=== PATIENT | male | born 1965 | race Hispanic/Latino ===

== ENCOUNTER 2021-04-28 18:25 | Inpatient (IN) | payer OTHER ==
--- NOTE | 2021-04-28 18:28 | Emergency Department Report ---
<KIN GILES - Last Filed: 04/28/21 23:19> ED Neuro Deficit HPI - General Chief Complaint: Neuro Symptoms/Deficit Stated Complaint: Patient minimally verbal. EMS is concerned about a stroke Time Seen by Provider: 04/28/21 18:26 - Related Data Home Medications: Previous Rx's Medication Instructions Recorded Last Taken Type Aspirin 325 mg PO QDAY #30 tablet 04/28/21 Unknown Rx Allergies/Adverse Reactions: Allergies Allergy/AdvReac Type Severity Reaction Status Date / Time atorvastatin [From Lipitor] Allergy Mild Unknown Verified 04/28/21 19:52 ED Past Medical Hx - Medications Home Medications: Home Medications Medication Instructions Recorded Confirmed Last Taken Type Aspirin 325 mg PO QDAY #30 tablet 04/28/21 Unknown Rx ED Course - Reevaluation(s) Reevaluation #2: 04/28/21 23:19 I received a call from Dr. Saunders, the doctor that is in charge for patient in assisted stating that patient does not have the decision to sign AGAINST MEDICAL ADVICE and he requested that the patient to be admitted to the hospital for further management. This is witnessed by venue manager and ER director and patient nurse. I discussed the patient with Dr. Godoy, he advised to put bridge order for the patient to be admitted to the hospital. - Lab Data Result diagrams: 04/28/21 18:53 04/28/21 18:53 ED Disposition Clinical Impression: Left-sided weakness, Aphasia, History of CHF (congestive heart failure), History of coronary artery disease Disposition: DC-[id number] OP ADMIT IP TO THIS HOSP Is pt being admited?: Yes Condition: Undetermined <MEE BLISS - Last Filed: 04/29/21 17:20> ED Neuro Deficit HPI - General Source: patient, police, EMS (Verbal report received from emergency medical services. EMS documentation not available at time of chart dictation ), RN notes reviewed Mode of arrival: Stretcher Limitations: Altered Mental Status, Physical Limitation - History of Present Illness Initial Comments: The patient was evaluated in the emergency department for symptoms described in the history of present illness. He/she was evaluated in the context of the global COVID-19 pandemic, which necessitated consideration that the patient might be at risk for infection with the virus that causes COVID-19. Institutional protocols and algorithms that pertain to the evaluation of patients at risk for COVID-19 are in a state of rapid change based on informat ion released by regulatory bodies including the CDC and federal and state organizations. These policies and algorithms were followed during the patient's care in the emergency department. Please note that these policies, procedures and recommendations changed on a rapid basis. Patient is a 55-year-old gentleman. He is not known to myself previously. He is currently incarcerated at a local assisted. He is brought to the hospital by emergency medical services as a possible code stroke. The patient himself is not verbal. [facility] facility documentation reviewed and appreciated, it is indicated that this patient is a 56-year-old gentleman with a history of CHF (unknown ejection fraction), AAA (unknown dimensions), found in cell with new left-sided weakness and slurred speech. It is documented that the patient had an Accu-Chek of 94, and a blood pressure of 85/64. It is unclear if the patient's symptoms developed this afternoon, or he was discovered with the symptoms. EMS tells me that the patient's symptoms started at 4:45 PM. Called up assisted facility at [phone]. Was transferred to the office of the medical insurance coding specialist, nobody answered the phone, and the left emergent voicemail for call back. The patient indicates that he has a significant other by the name of Edel; [phone]. I asked the patient if he take any anticoagulants, or blood thinning medications, but he cannot answer me. The patient pointed to the number, and indicated I should call this number. I called up the number, nobody answered, and I left voicemail for call back. As per EMS, neurologic symptoms include facial droop on the left side, and left arm weakness EMS reports normal Accu-Chek in the field. They state vital signs are "normal." In the emergency room, the patient is awake, follows commands, but is nonverbal. The patient cannot tell me his last known well time. In spite of multiple phone calls to multiple numbers, I am not able to conclusively established this patient's last known well time. Location: speech, left face, left arm, left leg Presenting Symptoms: Present: Weak/Paralyzed One Side, Unable to Speak Clearly Place: other (In the assisted) Severity: Unable to Determine On Anticoagulants: Yes (Patient takes aspirin. Patient does not take systemic a nticoagulation) Associated Symptoms: other (The patient is nonverbal.) ED Review of Systems ROS: Stated complaint: POSS STROKE Other details as noted in HPI Comment: Unobtainable due to pts medical conditions ED Neuro Physical Exam - General Limitations: Altered Mental Status, Physical Limitation General appearance: lethargic Suspected Stroke: Yes - Head Head exam: Present: atraumatic, normocephalic - Eye Eye exam: Present: normal appearance, PERRL - ENT ENT exam: Present: normal exam, normal orophraynx, mucous membranes moist, normal external ear exam - Neck Neck exam: Present: normal inspection, full ROM. Absent: tenderness, m eningismus - Respiratory Respiratory exam: Present: normal lung sounds bilaterally. Absent: respiratory distress, wheezes, rales, rhonchi, stridor, decreased breath sounds - Cardiovascular Cardiovascular Exam: Present: regular rate, normal rhythm, normal heart sounds. Absent: bradycardia, tachycardia, irregular rhythm, systolic murmur, diastolic murmur, rubs, gallop - GI/Abdominal GI/Abdominal exam: Present: soft. Absent: distended, tenderness, guarding, rebound, rigid, pulsatile mass - Rectal Rectal exam: Present: normal inspection, heme (-) stool, other (Chaperoned by Luan Perera). Absent: heme (+) stool, black stool, bloody stool - Extremities Exam Extremities exam: Present: normal inspection, other (2+ pulses noted in the bilateral upper and lower extremities. There is no palpable cord. negative Homans sign. Muscular compartments are soft. The pelvis is stable.) - Back Exam Back exam: Present: normal inspection. Absent: tenderness, CVA tenderness (R), CVA tenderness (L), paraspinal tenderness, vertebral tenderness - Neurological Exam Neurological exam: Present: altered, other (The patient is nonverbal. EOMI) - NIHSS Assessment Interval: Baseline 1a. Level of Consciousness: arousable/minor stimuli 1b. LOC Questions: answers no questions correctly 1c. LOC Commands: performs 1 task correctly 2. Best Gaze: normal 3. Visual: no visual loss (Unable to assess) 4. Facial Palsy: minor paralysis (Left side) 5b. Motor Arm Right: drift 5a. Motor Arm Left: some gravity effort 6a. Motor Leg Left: some gravity effort 6b. Motor Leg Right: drift 7. Limb Ataxia: amputation (Unable to assess) 8. Sensory: mild/moderate sensory loss 9. Best Language: mild/moderate aphasia 10. Dysarthria: mild/moderate dysarthria 11. Extinction/Inattention: visual/tactile inattention Total Score: 15 Stroke Severity: Moderate Stroke - Psychiatric Psychiatric exam: Present: normal affect, normal mood - Skin Skin exam: Present: warm, dry, intact, normal color. Absent: rash ED Course Vital Signs 04/28/21 04/28/21 04/28/21 19:02 19:16 19:30 Pulse Rate 59 L 52 L 67 Respiratory 16 21 14 Rate Blood Pressure 154/76 150/73 O2 Sat by Pulse 100 100 97 Oximetry 04/28/21 04/28/21 04/28/21 19:46 20:00 20:16 Pulse Rate 67 47 L 58 L Respiratory 12 23 14 Rate Blood Pressure 132/84 122/73 137/68 O2 Sat by Pulse 98 100 100 Oximetry 04/28/21 04/28/21 04/28/21 20:26 20:30 20:46 Pulse Rate 76 47 L Respiratory 15 20 Rate Blood Pressure 116/84 141/74 O2 Sat by Pulse 100 100 99 Oximetry 04/28/21 04/28/21 04/28/21 21:00 21:16 21:30 Pulse Rate 68 58 L 58 L Respiratory 13 12 23 Rate Blood Pressure 141/74 141/78 119/69 O2 Sat by Pulse 98 98 Oximetry 04/28/21 04/28/21 04/28/21 21:46 22:00 22:16 Pulse Rate 57 L 57 L 65 Respiratory 14 16 17 Rate Blood Pressure 129/61 121/67 135/75 O2 Sat by Pulse 95 95 95 Oximetry 04/28/21 04/28/21 04/28/21 22:30 22:45 23:00 Pulse Rate 58 L 82 63 Respiratory 15 24 22 Rate Blood Pressure 137/109 137/109 123/72 O2 Sat by Pulse 94 95 Oximetry 04/28/21 04/28/21 04/28/21 23:16 23:30 23:46 Pulse Rate 67 61 64 Respiratory 14 15 16 Rate Blood Pressure 114/86 119/69 121/69 O2 Sat by Pulse 98 91 Oximetry 04/29/21 04/29/21 04/29/21 00:00 00:16 00:30 Pulse Rate 59 L 58 L 58 L Respiratory 18 15 16 Rate Blood Pressure 112/58 108/69 O2 Sat by Pulse 95 93 90 Oximetry 04/29/21 04/29/21 04/29/21 00:46 01:00 01:16 Pulse Rate 56 L 59 L 56 L Respiratory 16 14 18 Rate Blood Pressure 118/58 112/60 124/73 O2 Sat by Pulse 96 95 Oximetry 04/29/21 04/29/21 04/29/21 01:30 01:46 02:00 Pulse Rate 63 60 61 Respiratory 13 15 19 Rate Blood Pressure 131/65 114/67 116/70 O2 Sat by Pulse 93 93 89 Oximetry 04/29/21 04/29/21 04/29/21 02:16 02:30 02:46 Pulse Rate 68 61 71 Respiratory 14 12 17 Rate Blood Pressure 109/71 114/67 105/76 O2 Sat by Pulse 92 Oximetry 04/29/21 04/29/21 04/29/21 03:00 03:16 03:30 Pulse Rate 62 63 66 Respiratory 15 17 14 Rate Blood Pressure 114/75 110/66 112/70 O2 Sat by Pulse 95 94 94 Oximetry 04/29/21 04/29/21 04/29/21 03:46 04:00 04:16 Pulse Rate 64 63 55 L Respiratory 12 14 13 Rate Blood Pressure 110/62 110/62 113/70 O2 Sat by Pulse 94 95 89 Oximetry 04/29/21 04/29/21 04/29/21 04:30 04:46 05:00 Pulse Rate 54 L 53 L 54 L Respiratory 14 16 14 Rate Blood Pressure 109/79 113/75 115/68 O2 Sat by Pulse 97 93 96 Oximetry 04/29/21 04/29/21 04/29/21 05:16 05:30 05:46 Pulse Rate 59 L 56 L 57 L Respiratory 13 13 14 Rate Blood Pressure 103/66 95/46 96/51 O2 Sat by Pulse 94 95 93 Oximetry 04/29/21 04/29/21 04/29/21 06:00 06:16 06:30 Pulse Rate 53 L 71 57 L Respiratory 13 11 L 17 Rate Blood Pressure 108/57 84/50 106/52 O2 Sat by Pulse 91 88 89 Oximetry 04/29/21 04/29/21 04/29/21 06:46 07:00 07:16 Pulse Rate 54 L 60 54 L Respiratory 13 16 10 L Rate Blood Pressure 84/55 88/50 111/48 O2 Sat by Pulse 93 90 92 Oximetry 04/29/21 04/29/21 04/29/21 07:30 07:46 08:00 Pulse Rate 51 L 49 L 61 Respiratory 11 L 11 L 11 L Rate Blood Pressure 97/40 95/41 90/51 O2 Sat by Pulse 92 91 93 Oximetry 04/29/21 04/29/21 08:16 08:30 Pulse Rate 69 66 Respiratory 13 17 Rate Blood Pressure 107/46 107/46 O2 Sat by Pulse 92 90 Oximetry - Reevaluation(s) Reevaluation #1: 04/28/21 19:04 Differential diagnosis, including but not limited to: Stroke, pneumonia, urinary tract infection, electrolyte derangement, thyroid derangement Assessment and plan: 55-year-old gentleman, who is nonverbal, with left-sided weakness, with an unclear last known well time. [facility] documentation indicates that he is found in cell with new left-sided weakness and slurred speech. Called up the assisted twice, was not able to get in touch with a medical professional or person who could clarify this patient's exact last known well time, and clarify if he was discovered at 4:45 PM, or if symptoms developed at 4:45 PM. In addition, his called me back, Ms. Hollingsworth ([phone]). She tells me the patient has been unresponsive in the assisted for 2 days. Therefore, this patient's last known well time as per his is over 48 hours ago. She also reports the patient had a myocardial infarction at [facility] within the past few weeks, and she reports he does not take systemic anticoagulation. She reports home medications include lisinopril, aspirin, Lasix, and metoprolol. This patient is therefore not a TPA candidate as we cannot clarify his exact last known well time, he has had a recent myocardial infarction as per his , and his also states that he has been unresponsive for over 48 hours. Because of alteration in mental status and impressive neurologic examination, the patient is emergently administratively consented for CT angiogram of the head and neck to evaluate for large vessel occlusion, vertebrobasilar disease, and/or dissection. Wet read from consulting stroke neurologist, Dr. Norton, is at no large vessel occlusion, dissection, or bleed is noted. We are awaiting formal interpretation from radiology at this time Blood pressure in the 150s at this time. Rectal exam negative for gross blood. Guaiac negative. Laboratory studies, urinalysis, x-ray pending. 04/28/21 19:05 04/28/21 20:34 Dr. Saunders from the assisted has called back. Last known well time 1:30 PM. Laboratory studies unremarkable. CTA head and neck negative for acute findings. Noncontrast CT scan of the brain negative for acute findings. Patient not tolerating p.o. Aspirin ordered rectally. 04/28/21 20:39 Patient's Edel is at the bedside. She has requested transfer to [facility] for continuity of care. We will reach out to [facility] house father; [phone] as a pat ruvalcaab. Discussed with Elisa, house father, states they cannot accept transfer as they are at full capacity and currently on diversion. I have updated the patient's . This patient can be managed over here at this hospital medically. He medically does not require transfer to a different facility. 04/28/21 21:19 Patient's family has now requested transfer to [facility]. We will discuss with [facility]. 04/28/21 21:51 Discussed history, physical, laboratory studies and imaging studies with neurology hospitalist at [facility], Dr. Hale [facility] is not able to accept this patient as they do not have available beds. In addition, this patient can be managed here medically as we have the necessary services to care for this patient. I have updated the patient's . 04/28/21 21:52 04/28/21 22:00 multiple extensive discussion was had with the patient's , Ms. Hollingsworth, as well as the patient. Neither the patient, nor his want to be admitted to this hospital. They are both refusing admission to this hospital. Risks of leaving, including , disability, paralysis, loss of quality of life are discussed with both the patient and his . While I do not think that the patient has decision-making capacity, his is alert, oriented, sober and of sound mind, and we have discussed this multiple times. I begged and implored her to allow us to admit him to the medical service for stroke work-up and treatment, but she refused. The patient's states that she will take him to [facility] to the emergency room, and plans to have his care continued there. It is unclear how she will take him to the emergency room while he is arrested and under police custody, however, given that his exhibits decision-making capacity and is adamantly refusing admission, in spite of multip le recommendations to do so, the patient will be discharged AGAINST MEDICAL ADVICE. 04/28/21 22:12 Have also informed delmar Brown at the [facility]assisted about what is currently going on. He states he will get in touch with his lead medical technologist Dr. Saunders to formulate an appropriate plan of care. Reevaluation #2: 04/29/21 17:17 Per Sabine Taylor in risk management, patients does not have authority to sign this patient out ama, and that it is the assisted who is serving as the patients medical decision maker thus patient admitted per [facility] instructions, which is also aligned with this patients best medical interests - Lab Data Result diagrams: 04/28/21 18:53 04/28/21 18:53 Lab Results 04/28/21 04/28/21 04/28/21 Range/Units 18:53 18:53 18:53 WBC 12.6 H (4.5-11.0) K/mm3 RBC 5.20 H (3.65-5.03) M/mm3 Hgb 15.6 H (11.8-15.2) gm/dl Hct 46.6 H (35.5-45.6) % MCV 90 (84-94) fl MCH 30 (28-32) pg MCHC 34 (32-34) % RDW 14.8 (13.2-15.2) % Plt Count 243 (140-440) K/mm3 Lymph % (Auto) 12.0 L (13.4-35.0) % Callahan % (Auto) 7.4 H (0.0-7.3) % Eos % (Auto) 1.0 (0.0-4.3) % Baso % (Auto) 0.6 (0.0-1.8) % Lymph # (Auto) 1.5 (1.2-5.4) K/mm3 Callahan # (Auto) 0.9 H (0.0-0.8) K/mm3 Eos # (Auto) 0.1 (0.0-0.4) K/mm3 Baso # (Auto) 0.1 (0.0-0.1) K/mm3 Seg Neutrophils % 79.0 H (40.0-70.0) % Seg Neutrophils # 10.0 H (1.8-7.7) K/mm3 PT 13.4 (12.2-14.9) Sec. INR 0.97 (0.87-1.13) APTT 31.8 (24.2-36.6) Sec. Thrombin Time 18.0 (15.1-19.6) Sec. Sodium 137 (137-145) mmol/L Potassium 3.9 (3.6-5.0) mmol/L Chloride 100.2 (98-107) mmol/L Carbon Dioxide 28 (22-30) mmol/L Anion Gap 13 mmol/L BUN 17 (9-20) mg/dL Creatinine 1.2 (0.8-1.3) mg/dL Estimated GFR > 60 ml/min BUN/Creatinine Ratio 14 % Glucose 106 H (75-100) mg/dL Lactic Acid (0.7-2.0) mmol/L Calcium 8.9 (8.4-10.2) mg/dL Magnesium 2.10 (1.7-2.3) mg/dL Total Bilirubin 0.50 (0.1-1.2) mg/dL AST 20 (5-40) units/L ALT 25 (7-56) units/L Alkaline Phosphatase 65 (35-129) units/L Total Creatine Kinase 69 (55-170) units/L CK-MB (CK-2) 1.6 (0.0-4.0) ng/mL CK-MB (CK-2) Rel Index 2.3 (0-4) Troponin T < 0.010 (0.00-0.029) ng/mL Total Protein 6.7 (6.3-8.2) g/dL Albumin 4.1 (3.9-5) g/dL Albumin/Globulin Ratio 1.6 % TSH (0.270-4.200) mlU/mL 04/28/21 04/28/21 04/28/21 Range/Units 19:12 19:12 19:12 WBC (4.5-11.0) K/mm3 RBC (3.65-5.03) M/mm3 Hgb (11.8-15.2) gm/dl Hct (35.5-45.6) % MCV (84-94) fl MCH (28-32) pg MCHC (32-34) % RDW (13.2-15.2) % Plt Count (140-440) K/mm3 Lymph % (Auto) (13.4-35.0) % Callahan % (Auto) (0.0-7.3) % Eos % (Auto) (0.0-4.3) % Baso % (Auto) (0.0-1.8) % Lymph # (Auto) (1.2-5.4) K/mm3 Callahan # (Auto) (0.0-0.8) K/mm3 Eos # (Auto) (0.0-0.4) K/mm3 Baso # (Auto) (0.0-0.1) K/mm3 Seg Neutrophils % (40.0-70.0) % Seg Neutrophils # (1.8-7.7) K/mm3 PT (12.2-14.9) Sec. INR (0.87-1.13) APTT (24.2-36.6) Sec. Thrombin Time (15.1-19.6) Sec. Sodium (137-145) mmol/L Potassium (3.6-5.0) mmol/L Chloride (98-107) mmol/L Carbon Dioxide (22-30) mmol/L Anion Gap mmol/L BUN (9-20) mg/dL Creatinine (0.8-1.3) mg/dL Estimated GFR ml/min BUN/Creatinine Ratio % Glucose (75-100) mg/dL Lactic Acid 1.10 (0.7-2.0) mmol/L Calcium (8.4-10.2) mg/dL Magnesium (1.7-2.3) mg/dL Total Bilirubin (0.1-1.2) mg/dL AST (5-40) units/L ALT (7-56) units/L Alkaline Phosphatase (35-129) units/L Total Creatine Kinase 69 (55-170) units/L CK-MB (CK-2) (0.0-4.0) ng/mL CK-MB (CK-2) Rel Index (0-4) Troponin T (0.00-0.029) ng/mL Total Protein (6.3-8.2) g/dL Albumin (3.9-5) g/dL Albumin/Globulin Ratio % TSH 0.766 (0.270-4.200) mlU/mL 04/29/21 Range/Units 02:43 WBC (4.5-11.0) K/mm3 RBC (3.65-5.03) M/mm3 Hgb (11.8-15.2) gm/dl Hct (35.5-45.6) % MCV (84-94) fl MCH (28-32) pg MCHC (32-34) % RDW (13.2-15.2) % Plt Count (140-440) K/mm3 Lymph % (Auto) (13.4-35.0) % Callahan % (Auto) (0.0-7.3) % Eos % (Auto) (0.0-4.3) % Baso % (Auto) (0.0-1.8) % Lymph # (Auto) (1.2-5.4) K/mm3 Callahan # (Auto) (0.0-0.8) K/mm3 Eos # (Auto) (0.0-0.4) K/mm3 Baso # (Auto) (0.0-0.1) K/mm3 Seg Neutrophils % (40.0-70.0) % Seg Neutrophils # (1.8-7.7) K/mm3 PT (12.2-14.9) Sec. INR (0.87-1.13) APTT (24.2-36.6) Sec. Thrombin Time (15.1-19.6) Sec. Sodium (137-145) mmol/L Potassium (3.6-5.0) mmol/L Chloride (98-107) mmol/L Carbon Dioxide (22-30) mmol/L Anion Gap mmol/L BUN (9-20) mg/dL Creatinine (0.8-1.3) mg/dL Estimated GFR ml/min BUN/Creatinine Ratio % Glucose (75-100) mg/dL Lactic Acid (0.7-2.0) mmol/L Calcium (8.4-10.2) mg/dL Magnesium (1.7-2.3) mg/dL Total Bilirubin (0.1-1.2) mg/dL AST (5-40) units/L ALT (7-56) units/L Alkaline Phosphatase (35-129) units/L Total Creatine Kinase (55-170) units/L CK-MB (CK-2) (0.0-4.0) ng/mL CK-MB (CK-2) Rel Index (0-4) Troponin T < 0.010 (0.00-0.029) ng/mL Total Protein (6.3-8.2) g/dL Albumin (3.9-5) g/dL Albumin/Globulin Ratio % TSH (0.270-4.200) mlU/mL Vital Signs 04/28/21 04/28/21 04/28/21 19:02 19:16 19:30 Pulse Rate 59 L 52 L 67 Respiratory 16 21 14 Rate Blood Pressure 154/76 150/73 O2 Sat by Pulse 100 100 97 Oximetry 04/28/21 04/28/21 04/28/21 19:46 20:00 20:16 Pulse Rate 67 47 L 58 L Respiratory 12 23 14 Rate Blood Pressure 132/84 122/73 137/68 O2 Sat by Pulse 98 100 100 Oximetry Rectal temperature 98 degrees. - EKG Data -: EKG Interpreted by Ct EKG shows normal: sinus rhythm Rate: normal When compared to previous EKG there are: previous EKG unavailable 04/28/21 19:49 EKG interpreted at 19: 10 Sinus rhythm, bradycardia, rate 61 bpm, normal axis, normal P wave axis, poor R wave progression, PVC, incomplete left bundle branch block. Abnormal EKG. Not a STEMI. No prior for comparison. - Radiology Data Radiology results: pending, report reviewed, image reviewed CTA head with intravenous contrast CLINICAL HISTORY: stroke sx TECHNIQUE: 0.625 mm thick contiguous axial scans were obtained from the skull base to the skull vertex during rapid bolus administration of intravenous contrast material. Multiplanar reconstructions were produced in the coronal and sagittal planes. In addition 3 plane MIP instructions were produced and reviewed for this report. The axial source images and reconstructed images were reviewed for this report. CONTRAST DOSE REPORT: Omnipaque 350: 100 ml administered intravenously. All CT scans at this location are performed using CT dose reduction for ALARA by means of automated exposure control. FINDINGS: Internal carotid arteries: Calcified atherosclerotic plaque is seen along the course of the cavernous segments of both internal carotid arteries extending up into the clinoid regions bilaterally. There is no associated stenosis. Irena, cavernous, opthalmic, clinoid and supraclinoid segments of the ICAs have an otherwise unremarkable appearance. Middle cerebral arteries:Normal and symmetrical M1 segments of the middle cerebral arteries are demonstrated. No abnormalities are seen on evaluation of the insular or opercular branches. Anterior cerebral arteries:Bilaterally symmetrical A1 segments are demonstrated. No abnormalities are seen along the course of the A2 segments or their visualized pericallosal branches. Vertebral arteries:Bilaterally symmetrical vertebral arteries are demonstrated. Both vertebral arteries contribute to the basilar artery origin. Basilar artery:Basilar artery has an unremarkable appearance. Posterior cerebral arteries:Bilaterally symmetrical posterior cerebral arteries are identi fied. Dural sinuses: Dural venous sinuses are well demonstrated on this exam. There is no evidence of dural sinus thrombosis. IMPRESSION: 1. No indication of intercranial stenosis or large vessel occlusion. Signer Name: Vipin Monsalve MD Signed: 04/28/2021 6:17 PM Workstation Name: [id number] CTA neck without and with intravenous contrast material CLINICAL HISTORY: stroke sx TECHNIQUE: Following acquisition of a timing bolus 0.625 mm thick contiguous axial scans were obtained from aortic arch to the skull base during rapid bolus intravenous contrast infusion. In addition to evaluation of axial source images multiplanar reconstructions were produced and reviewed for this report. 3 plane MIP reconstructions were produced and reviewed. Contrast dose report: Omnipaque 350: 100 ml, administered intravenously All CT examinations performed at this facility utilize modulated dose reduction, iterative reconstruction or weight-based dosing, as appropriate, to obtain a radiation dose which is as low as can reasonably be achieved. FINDINGS: Thoracic aorta:No abnormalities are identified along the course of the thoracic aorta..The origins of the great vessels have an unremarkable appearance. Brachiocephalic artery, left common carotid artery origin and left subclavian artery all have an unremarkable appearance. Right carotid artery:No abnormalities are seen along the course of the RCCA, at the right carotid bifurcation or along the cervical portions of the DAVID. Left carotid artery: Mildly calcified atherosclerotic plaque is observed at the left carotid bifurcation or along the proximal LICA with no indication of stenosis. No significant abnormalities are noted along the course of the left common carotid artery, at the left carotid bifurcation or along the course of the cervical segments of the LICA. Posterior circulation:The vertebral arteries have an unremarkable appearance. Both vertebral arteries contribute to the basilar artery origin. The basilar artery has an unremarkable appearance. The degree of stenosis, if any, is determined utilizing NASCET like criteria. In this case there is no indication of hemodynamically significant stenosis at the carotid bifurcations or elsewhere. Evaluation of the nonvascular soft tissue structures reveal no abnormality. There is no indication of cervical lymphadenopathy. No abnormalities are seen along the course of the airway. Visualized portions of the parotid glands and the submandibular salivary glands have a normal appearance. Thyroid gland has a normal appearance. Evaluation of the lung apices reveals no evidence of lung nodule or infiltrate. Evaluation of the cervical spine revealed no significant abnormalities. IMPRESSION: 1. No indication of hemodynamically significant stenosis at the carotid bifurcations or elsewhere. Signer Name: Vipin Monsalve MD Signed: 04/28/2021 6:14 PM Workstation Name: [id number] CT HEAD WITHOUT CONTRAST INDICATION / CLINICAL INFORMATION: Stroke symptoms. TECHNIQUE: All CT scans at this location are performed using CT dose reduction for ALARA by means of automated exposure control. COMPARISON: None available. FINDINGS: HEMORRHAGE: No evidence of intracranial hemorrhage or extra-axial fluid collection. EXTRA-AXIAL SPACES: Cortical sulci, sylvian fissures and basilar cisterns have an unremarkable appearance. VENTRICULAR SYSTEM: The third and lateral ventricles are of normal size and configuration. CEREBRAL PARENCHYMA: Periventricular, deep white matter and subcortical white matter lucency is observed in both cerebral hemispheres. This likely reflects the presence of microvascular ischemic change which is greater than expected for the patient's age of 55 years. MIDLINE SHIFT OR HERNIATION: There is no mass effect. CEREBELLUM / BRAINSTEM: Brainstem and cerebellum have an unremarkable appearance. MIDLINE STRUCTURES:No abnormalities of the pituitary gland or pineal region are identified. INTRACRANIAL VESSELS: Calcified atherosclerotic plaque is seen along the course the cavernous segments of both internal carotid arteries extending up into the supraclinoid regions bilaterally. ORBITS: visualized portions of the orbits have an unremarkable appearance. SOFT TISSUES of HEAD: No significant abnormality. CALVARIUM: Evaluation of bone windows reveals no abnormalities. PARANASAL SINUSES / MASTOID AIR CELLS: Mild mucosal disease is present in the right frontal sinus and within several anterior ethmoid air cells on the right. ADDITIONAL FINDINGS: None. IMPRESSION: 1. No acute intracranial abnormality. 2. Evidence of intercranial atherosclerotic disease manifest by extensive calcification of the internal carotid arteries. 3. Moderate microv ascular ischemic change greater than expected at age 55 years. Signer Name: Vipin Monsalve MD Signed: 04/28/2021 6:11 PM Workstation Name: [id number] CHEST 1 VIEW INDICATION: cva. COMPARISON: 01/20/2021 FINDINGS: Support devices: None. Heart: Enlarged, unchanged. Post-CABG changes are noted. Lungs /Pleura: No acute pulmonary or pleural findings. IMPRESSION: 1. No acute findings. Signer Name: Abran Loredo MD Signed: 04/28/2021 6:09 PM Workstation Name: [id number] Critical Care Time: Yes Critical care time in (mins) excluding proc time.: 120 Critical care attestation.: If time is entered above; I have spent that time in minutes in the direct care of this critically ill patient, excluding procedure time. Critical Care Time: Critical care time includes multiple bedside reevaluations, interpretation of laboratory studies, radiology studies, time spent having multiple conversations with patient's on the phone, and time spent calling the assisted (left voicemail for call back), and consultation with stroke neurology, caring for this patient with a neurologic deficit. This does not include procedure time. ED Disposition Is pt being admited?: Yes Does the pt Need Aspirin: Yes
--- NOTE | 2021-04-28 19:00 | Consultation ---
History of Present Illness History of present illness: [facility] Consult Note # Demographics Consult Type: Acute Stroke Level 1 (0-4.5 hrs) Patient Location: Emergency Room First Name: Geoffrey Last Name: Jon Date of : 1965 Age: 55 Gender: Male Time of Initial Page (): 04/28/2021, 18:30 Time of Return Call ( Time): 04/28/2021, 18:30 # HPI Chief Complaint: altered mental state left-sided weakness History: 55M with unclear medical history presents with left-sided facial droop and weakness, aphasia. Found in [facility] at 1645; unclear LKWT. Per , has been unresponsive in the [facility] for 2 days. # Scores Time of exam and NIHSS (): 04/28/2021, 18:43 Level of Consciousness 1a: [0] = Alert; keenly responsive LOC Questions 1b: [1] = Answers one correctly LOC Commands 1c: [0] = Performs both tasks correctly Best Gaze 2: [0] = Normal Visual 3: [2] = Complete hemianopia Facial Palsy 4: [2] = Partial paralysis Motor Arm Left 5a: [3] = No effort against gravity Motor Arm Right 5b: [0] = No drift Motor Leg Left 6a: [4] = No movement Motor Leg Right 6b: [0] = No drift Limb Ataxia 7: [0] = Absent Sensory 8: [2] = Severe to total sensory loss Best Language 9: [3] = Mute Dysarthria 10: [2] = Severe dysarthria Extinction and Inattention 11: [1] = Visual, tactile, auditory, spatial, or pers onal inattention NIHSS Total: 20 # Data Time Head CT personally read by me (): 04/28/2021, 18:[address]: no bleed preliminarily reviewed by me, please refer to radiology read for official reading CTA Head: no large vessel occlusion preliminarily reviewed by me, please refer to radiology read for official reading CTA Neck: patent vessels preliminarily reviewed by me, please refer to radiology read for official reading # Assessment Impression: Ischemic Stroke (Acute) # Plan Thrombolytic/Intervention: NOT IV Thrombolysis or IA Intervention candidate Thrombolytic Exclusion (< 3 hour window): time of onset unclear Intraarterial Exclusion: no large vessel occlusion (LVO) Target Blood Pressure: SBP < 220 DBP < 105 Labs: hemoglobin A1c lipid panel Imaging: (urgency: routine): MRI Brain without contrast Diagnostic Test: echo with bubble study Therapy/Evaluation: NPO until swallow evaluation PT/OT evaluation speech/swallow consultation Medication: ASA 300 NE until oral access available, then 81 daily Atorvastatin 80 daily, tailor to LDL < 70 goal DVT Prophylaxis: SCD chemical DVT prophylaxis Other: permissive hypertension telemetry monitoring I have discussed my recommendations with the referring provider Disposition: admit # Logistics Telemedicine: Interactive 2 way audio and visual telecommunication technology was utilized during this visit Electronically signed at 04/28/2021 19:00 (Eastern Time) by Meño Norton MD
[2021-04-28 19:09] LABS: Basophils # (Auto) 0.1 K/mm3 (0.0-0.1); Basophils % (Auto) 0.6 % (0.0-1.8); Eosinophils # (Auto) 0.1 K/mm3 (0.0-0.4); Hematocrit 46.6 % (35.5-45.6); Hemoglobin 15.6 gm/dl (11.8-15.2); Lymphocytes # (Auto) 1.5 K/mm3 (1.2-5.4); Mean Corpuscular HGB Conc 34 % (32-34); Mean Corpuscular Volume 90 fl (84-94); Monocytes # (Auto) 0.9 K/mm3 (0.0-0.8); Monocytes % (Auto) 7.4 % (0.0-7.3); Platelet Count 243 K/mm3 (140-440); Red Cell Distribution Width 14.8 % (13.2-15.2)
--- NOTE | 2021-04-28 19:14 | XRay Report ---
CHEST 1 VIEW INDICATION: cva. COMPARISON: 01/20/2021 FINDINGS: Support devices: None. Heart: Enlarged, unchanged. Post-CABG changes are noted. Lungs/Pleura: No acute pulmonary or pleural findings. IMPRESSION: 1. No acute findings. Signer Name: Abran Loredo MD Signed: 04/28/2021 7:09 PM Workstation Name: [id number]
--- NOTE | 2021-04-28 19:15 | Cat Scan Report ---
CT HEAD WITHOUT CONTRAST INDICATION / CLINICAL INFORMATION: Stroke symptoms. TECHNIQUE: All CT scans at this location are performed using CT dose reduction for ALARA by means of automated e xposure control. COMPARISON: None available. FINDINGS: HEMORRHAGE: No evidence of intracranial hemorrhage or extra-axial fluid collection. EXTRA-AXIAL SPACES: Cortical sulci, sylvian fissures and basilar cisterns have an unremarkable appear ance. VENTRICULAR SYSTEM: The third and lateral ventricles are of normal size and configuration. CEREBRAL PARENCHYMA: Periventricular, deep white matter and subcortical white matter lucency is obser juvenal in both cerebral hemispheres. This likely reflects the presence of microvascular ischemic change which is greater than expected for the patient's age of 55 years. MIDLINE SHIFT OR HERNIATION: There is no mass effect. CEREBELLUM / BRAINSTEM: Brainstem and cerebellum have an unremarkable appearance. MIDLINE STRUCTURES:No abnormalities of the pituitary gland or pineal region are identified. INTRACRANIAL VESSELS: Calcified atherosclerotic plaque is seen along the course the cavernous segment s of both internal carotid arteries extending up into the supraclinoid regions bilaterally. ORBITS: visualized portions of the orbits have an unremarkable appearance. SOFT TISSUES of HEAD: No significant abnormality. CALVARIUM: Evaluation of bone windows reveals no abnormalities. PARANASAL SINUSES / MASTOID AIR CELLS: Mild mucosal disease is present in the right frontal sinus and within several anterior ethmoid air cells on the right. ADDITIONAL FINDINGS: None. IMPRESSION: 1. No acute intracranial abnormality. 2. Evidence of intercranial atherosclerotic disease manifest by extensive calcification of the fall internship al carotid arteries. 3. Moderate microvascular ischemic change greater than expected at age 55 years. Signer Name: Vipin Monsalve MD Signed: 04/28/2021 7:11 PM Workstation Name: [id number]
--- NOTE | 2021-04-28 19:18 | Cat Scan Report ---
CTA neck without and with intravenous contrast material CLINICAL HISTORY: stroke sx TECHNIQUE: Following acquisition of a timing bolus 0.625 mm thick contiguous axial scans were obtained from aort ic arch to the skull base during rapid bolus intravenous contrast infusion. In addition to evaluation of axial source images multiplanar reconstructions were produced and reviewed for this report. 3 richi ne MIP reconstructions were produced and reviewed. Contrast dose report: Omnipaque 350: 100 ml, administered intravenously All CT examinations performed at this facility utilize modulated dose reduction, iterative reconstruc tion or weight-based dosing, as appropriate, to obtain a radiation dose which is as low as can reason ably be achieved. FINDINGS: Thoracic aorta:No abnormalities are identified along the course of the thoracic aorta..The origins of the great vessels have an unremarkable appearance. Brachiocephalic artery, left common carotid arter y origin and left subclavian artery all have an unremarkable appearance. Right carotid artery:No abnormalities are seen along the course of the RCCA, at the right carotid bif urcation or along the cervical portions of the DAVID. Left carotid artery: Mildly calcified atherosclerotic plaque is observed at the left carotid bifurcat ion or along the proximal LICA with no indication of stenosis. No significant abnormalities are noted along the course of the left common carotid artery, at the left carotid bifurcation or along the cou rse of the cervical segments of the LICA. Posterior circulation:The vertebral arteries have an unremarkable appearance. Both vertebral arteries contribute to the basilar artery origin. The basilar artery has an unremarkable appearance. The degree of stenosis, if any, is determined utilizing NASCET like criteria. In this case there is no indication of hemodynamically significant stenosis at the carotid bifurcations or elsewhere. Evaluation of the nonvascular soft tissue structures reveal no abnormality. There is no indication of cervical lymphadenopathy. No abnormalities are seen along the course of the airway. Visualized porti ons of the parotid glands and the submandibular salivary glands have a normal appearance. Thyroid gla nd has a normal appearance. Evaluation of the lung apices reveals no evidence of lung nodule or infil trate. Evaluation of the cervical spine revealed no significant abnormalities. IMPRESSION: 1. No indication of hemodynamically significant stenosis at the carotid bifurcations or elsewhere. Signer Name: Vipin Monsalve MD Signed: 04/28/2021 7:14 PM Workstation Name: [id number]
--- NOTE | 2021-04-28 19:21 | Cat Scan Report ---
CTA head with intravenous contrast CLINICAL HISTORY: stroke sx TECHNIQUE: 0.625 mm thick contiguous axial scans were obtained from the skull base to the skull vertex during r apid bolus administration of intravenous contrast material. Multiplanar reconstructions were produced in the coronal and sagittal planes. In addition 3 plane MIP instructions were produced and reviewed for this report. The axial source images and reconstructed images were reviewed for this report. CONTRAST DOSE REPORT: Omnipaque 350: 100 ml administered intravenously. All CT scans at this location are performed using CT dose reduction for ALARA by means of automated e xposure control. FINDINGS: Internal carotid arteries: Calcified atherosclerotic plaque is seen along the course of the cavernous segments of both internal carotid arteries extending up into the clinoid regions bilaterally. There is no associated stenosis. Irena, cavernous, opthalmic, clinoid and supraclinoid segments of the ICA s have an otherwise unremarkable appearance. Middle cerebral arteries:Normal and symmetrical M1 segments of the middle cerebral arteries are demon strated. No abnormalities are seen on evaluation of the insular or opercular branches. Anterior cerebral arteries:Bilaterally symmetrical A1 segments are demonstrated. No abnormalities are seen along the course of the A2 segments or their visualized pericallosal branches. Vertebral arteries:Bilaterally symmetrical vertebral arteries are demonstrated. Both vertebral arteri es contribute to the basilar artery origin. Basilar artery:Basilar artery has an unremarkable appearance. Posterior cerebral arteries:Bilaterally symmetrical posterior cerebral arteries are identified. Dural sinuses: Dural venous sinuses are well demonstrated on this exam. There is no evidence of dural sinus thrombosis. IMPRESSION: 1. No indication of intercranial stenosis or large vessel occlusion. Signer Name: Vipin Monsalve MD Signed: 04/28/2021 7:17 PM Workstation Name: [id number]
[2021-04-28 19:25] LABS: INR 0.97 (0.87-1.13)
[2021-04-28 19:26] LABS: Partial Thromboplastin Time 31.8 Sec. (24.2-36.6)
[2021-04-28 19:27] LABS: Creatine Kinase MB 1.6 ng/mL (0.0-4.0)
[2021-04-28 19:28] LABS: Alanine Aminotransferase 25 units/L (7-56); Albumin 4.1 g/dL (3.9-5); BUN/Creatinine Ratio 14; Blood Urea Nitrogen 17 mg/dL (9-20); Calcium 8.9 mg/dL (8.4-10.2); Hemolysis Index 4
[2021-04-28] MEDS ORDERED: ASPIRIN 81 MG TAB CHEW PO ONE (19:52)
[2021-04-28] MEDS ORDERED: ASPIRIN 300 MG RECT SUPP PR ONE (20:02)
[2021-04-28] MEDS: SODIUM CHLORIDE 0.9% 250ML 250 ML IV ONE ×2 (20:03→22:58)
[2021-04-29] MEDS ORDERED: oxyCODONE /ACETAMINOPHEN 5-325MG TAB PO PRN (02:23)
[2021-04-29] MEDS ORDERED: HYDROmorphone 1 MG/1 ML INJ IV PRN (02:23)
[2021-04-29] MEDS ORDERED: ALBUTEROL 2.5 MG/3 ML NEBU IH PRN (02:23)
[2021-04-29] MEDS ORDERED: ACETAMINOPHEN 325 MG TAB PO PRN (02:23)
[2021-04-29] MEDS ORDERED: ONDANSETRON 4 MG/2 ML INJ IV PRN (02:23)
--- NOTE | 2021-04-29 02:35 | History and Physical Report ---
History of Present Illness Date of examination: 04/29/21 Date of admission: 04/29/21 Chief complaint: Left-sided weakness and slurred speech History of present illness: 56-year-old gentleman with a history of CHF , AAA was brought from the half-way with new left-sided weakness and slurred speech. the patient had an Accu-Chek of 94, and a blood pressure of 85/64. As per EMS, neurologic symptoms include facial droop on the left side, and left arm weakness In the emergency room, the patient is awake, follows commands, but is nonverbal. The patient cannot tell me his last known well time. It is not able to conclusively established this patient's last known well time. CT scan of the head shows no acute intracranial abnormality. Patient is seen and evaluated by telemetry neurology Past History Past Medical History: heart failure, other (AAA) Medications and Allergies Allergies Allergy/AdvReac Type Severity Reaction Status Date / Time atorvastatin [From Lipitor] Allergy Mild Unknown Verified 04/28/21 19:52 Home Medications Medication Instructions Recorded Confirmed Last Taken Type Aspirin 325 mg PO QDAY #30 tablet 04/28/21 Unknown Rx Review of Systems Neurological: weakness, aphasia Exam - Constitutional Vitals: Temp Pulse Resp BP Pulse Ox 60 15 114/67 93 04/29/21 01:46 04/29/21 01:46 04/29/21 01:46 04/29/21 01:46 General appearance: Present: no acute distress, well-nourished - EENT Eyes: Present: PERRL ENT: hearing intact, clear oral mucosa - Neck Neck: Present: supple, normal ROM - Respiratory Respiratory effort: normal Respiratory: bilateral: CTA - Cardiovascular Heart Sounds: Present: S1 & S2. Absent: rub, click - Extremities Extremities: pulses symmetrical, No edema Peripheral Pulses: within normal limits - Abdominal General gastrointestinal: Present: soft, non-tender, non-distended, normal bowel sounds Male genitourinary: Present: normal - Integumentary Integumentary: Present: clear, warm, dry - Musculoskeletal Musculoskeletal: gait normal, strength equal bilaterally - Psychiatric Psychiatric: appropriate mood/affect, intact judgment & insight - Neurologic Neurologic: CNII-XII intact, other (Slurred speech. Left-sided weakness) HEART Score - HEART Score Troponin: Troponin T < 0.010 ng/mL (0.00-0.029) 04/28/21 18:53 Results - Labs CBC & Chem 7: 04/28/21 18:53 04/28/21 18:53 Labs: Laboratory Last Values WBC 12.6 K/mm3 (4.5-11.0) H 04/28/21 18:53 RBC 5.20 M/mm3 (3.65-5.03) H 04/28/21 18:53 Hgb 15.6 gm/dl (11.8-15.2) H 04/28/21 18:53 Hct 46.6 % (35.5-45.6) H 04/28/21 18:53 MCV 90 fl (84-94) 04/28/21 18:53 MCH 30 pg (28-32) 04/28/21 18:53 MCHC 34 % (32-34) 04/28/21 18:53 RDW 14.8 % (13.2-15.2) 04/28/21 18:53 Plt Count 243 K/mm3 (140-440) 04/28/21 18:53 Lymph % (Auto) 12.0 % (13.4-35.0) L 04/28/21 18:53 Wetzel % (Auto) 7.4 % (0.0-7.3) H 04/28/21 18:53 Eos % (Auto) 1.0 % (0.0-4.3) 04/28/21 18:53 Baso % (Auto) 0.6 % (0.0-1.8) 04/28/21 18:53 Lymph # (Auto) 1.5 K/mm3 (1.2-5.4) 04/28/21 18:53 Wetzel # (Auto) 0.9 K/mm3 (0.0-0.8) H 04/28/21 18:53 Eos # (Auto) 0.1 K/mm3 (0.0-0.4) 04/28/21 18:53 Baso # (Auto) 0.1 K/mm3 (0.0-0.1) 04/28/21 18:53 Seg Neutrophils % 79.0 % (40.0-70.0) H 04/28/21 18:53 Seg Neutrophils # 10.0 K/mm3 (1.8-7.7) H 04/28/21 18:53 PT 13.4 Sec. (12.2-14.9) 04/28/21 18:53 INR 0.97 (0.87-1.13) 04/28/21 18:53 APTT 31.8 Sec. (24.2-36.6) 04/28/21 18:53 Thrombin Time 18.0 Sec. (15.1-19.6) 04/28/21 18:53 Sodium 137 mmol/L (137-145) 04/28/21 18:53 Potassium 3.9 mmol/L (3.6-5.0) 04/28/21 18:53 Chloride 100.2 mmol/L (98-107) 04/28/21 18:53 Carbon Dioxide 28 mmol/L (22-30) 04/28/21 18:53 Anion Gap 13 mmol/L 04/28/21 18:53 BUN 17 mg/dL (9-20) 04/28/21 18:53 Creatinine 1.2 mg/dL (0.8-1.3) 04/28/21 18:53 Estimated GFR > 60 ml/min 04/28/21 18:53 BUN/Creatinine Ratio 14 % 04/28/21 18:53 Glucose 106 mg/dL (75-100) H 04/28/21 18:53 Lactic Acid 1.10 mmol/L (0.7-2.0) 04/28/21 19:12 Calcium 8.9 mg/dL (8.4-10.2) 04/28/21 18:53 Magnesium 2.10 mg/dL (1.7-2.3) 04/28/21 18:53 Total Bilirubin 0.50 mg/dL (0.1-1.2) 04/28/21 18:53 AST 20 units/L (5-40) 04/28/21 18:53 ALT 25 units/L (7-56) 04/28/21 18:53 Alkaline Phosphatase 65 units/L (35-129) 04/28/21 18:53 Total Creatine Kinase 69 units/L (55-170) 04/28/21 19:12 CK-MB (CK-2) 1.6 ng/mL (0.0-4.0) 04/28/21 18:53 CK-MB (CK-2) Rel Index 2.3 (0-4) 04/28/21 18:53 Troponin T < 0.010 ng/mL (0.00-0.029) 04/28/21 18:53 Total Protein 6.7 g/dL (6.3-8.2) 04/28/21 18:53 Albumin 4.1 g/dL (3.9-5) 04/28/21 18:53 Albumin/Globulin Ratio 1.6 % 04/28/21 18:53 TSH 0.766 mlU/mL (0.270-4.200) 04/28/21 19:12 Microbiology: Microbiology 04/28/21 19:12 Peripheral/Venous Blood Culture - Preliminary Culture in Progress 04/28/21 19:12 Peripheral/Venous Blood Culture - Preliminary Culture in Progress - Imaging and Cardiology CT Scan - head: report reviewed Assessment and Plan VTE prophylaxis?: Mechanical Plan of care discussed with patient/family: Yes - Patient Problems (1) Left-sided weakness Current Visit: Yes Status: Acute Plan to address problem: Admit the patient to the medical floor. Aspirin 325 mg p.o. daily. Lipitor 80 mg p.o. daily. N.p.o. MRI of the brain with and without contrast. MRI of the brain and neck with and without contrast. PT OT any speech evaluation. Echocardiogram. Will consult neurology for evaluation (2) Aphasia Current Visit: Yes Status: Acute Plan to address problem: Aspirin 325 mg p.o. daily. Lipitor 80 mg p.o. daily. N.p.o. MRI of the brain with and without contrast. MRI of the brain and neck with and without contrast. PT OT any speech evaluation. Echocardiogram. Will consult neurology for evaluation (3) History of CHF (congestive heart failure) Current Visit: Yes Status: Acute Plan to address problem: Stable. We'll continue the home medication. Echocardiogram (4) History of coronary artery disease Current Visit: Yes Status: Acute Plan to address problem: Aspirin 325 mg p.o. daily. Lipitor 80 mg p.o. daily. Echocardiogram. (5) DVT prophylaxis Current Visit: Yes Status: Acute Plan to address problem: SCD for DVT prophylaxis. Pepcid 20 mg IV twice daily for GI prophylaxis. Patient is a full code
--- NOTE | 2021-04-29 08:20 | Consultation ---
History of Present Illness Consult date: 04/29/21 Reason for Consult: left side weakness History of present illness: Left-sided weakness and slurred speech History of present illness: 56-year-old gentleman with a history of CHF , AAA was brought from the detention with new left-sided weakness and slurred speech. the patient had an Accu-Chek of 94, and a blood pressure of 85/64. As per EMS, neurologic symptoms include facial droop on the left side, and left arm weakness In the emergency room, the patient is awake, follows commands, but is nonverbal. The patient cannot tell me his last known well time. It is not able to conclusively established this patient's last known well time. CT scan of the head shows no acute intracranial abnormality. Patient is seen and evaluated by telemetry neurology NIH#20 initially CTA brain and neck is unremarkable -MRI brain is pending Past History Past Medical History: heart failure, other (AAA) +++ Hx of right CEA in 2019 as per pt. Medications and Allergies Allergies Allergy/AdvReac Type Severity Reaction Status Date / Time atorvastatin [From Lipitor] Allergy Mild Unknown Verified 04/28/21 19:52 Home Medications Medication Instructions Recorded Confirmed Last Taken Type Aspirin 325 mg PO QDAY #30 tablet 04/28/21 Unknown Rx Review of Systems Neurological: weakness, slurred speech Past History Past Medical History: heart failure, other (AAA) Past Surgical History: Other (right CEA 2019) Medications and Allergies Allergies Allergy/AdvReac Type Severity Reaction Status Date / Time atorvastatin [From Lipitor] Allergy Mild Unknown Verified 04/28/21 19:52 Home Medications Medication Instructions Recorded Confirmed Last Taken Type Aspirin 325 mg PO QDAY #30 tablet 04/28/21 Unknown Rx Active Meds: Active Medications Acetaminophen (Acetaminophen 325 Mg Tab) 650 mg PO Q4H PRN PRN Reason: Pain MILD(1-3)/Fever >100.5/ANGEL Albuterol (Albuterol 2.5 Mg/3 Ml Nebu) 2.5 mg IH Q4HRT PRN PRN Reason: Shortness Of Breath Albuterol/Ipratropium (Ipratropium/Albuterol Sulfate 3 Ml Ampul.Neb) 1 ampul IH Q6HRT [facility] Aspirin (Aspirin 325 Mg Tab) 325 mg PO QDAY [facility] Famotidine (Famotidine 20 Mg/2 Ml Inj) 20 mg IV BID [facility] Hydromorphone HCl (Hydromorphone 1 Mg/1 Ml Inj) 0.5 mg IV Q3H PRN PRN Reason: Pain , Severe (7-10) Sodium Chloride (Nacl 0.9% 1000 Ml) 1,000 mls @ 100 mls/hr IV DIRECT [facility] Labetalol HCl (Labetalol 20 Mg/4 Ml Inj) 10 mg IV Q5MIN PRN PRN Reason: to maintain SBP < 180 Ondansetron HCl (Ondansetron 4 Mg/2 Ml Inj) 4 mg IV Q8H PRN PRN Reason: Nausea And Vomiting Oxycodone/Acetaminophen (Oxycodone /Acetaminophen 5-325mg Tab) 1 tab PO Q6H PRN PRN Reason: Pain, Moderate (4-6) Sodium Chloride (Sodium Chloride 0.9% 10 Ml Flush Syringe) 10 ml IV BID [facility] Sodium Chloride (Sodium Chloride 0.9% 10 Ml Flush Syringe) 10 ml IV PRN PRN PRN Reason: LINE FLUSH Review of Systems ROS unobtainable: due to mental status Physical Examination - Vital Signs Vital Signs: Vital Signs Pulse Resp Pulse Ox 59 L 16 100 04/28/21 19:02 04/28/21 19:02 04/28/21 19:02 - Constitutional General appearance: comfortable - EENT EENT: Present: PERRL, mucous membranes moist - Respiratory Respiratory: Present: chest non-tender, lungs clear, rhonchi - Cardiovascular Cardiovascular: Present: regular rate, normal S1, normal S2 Extremities: Present: no peripheral edema bilatateraly, no clubbing, cyanosis - Gastrointestinal Gastrointestinal: Present: normoactive bowel sounds - Integumentary Integumentary: Present: normal - Neurologic Cranial nerve examination: PERRL, EOMI, other (slurred speech and slight left facial droop and subjective decrese sensation left side) Detailed motor examination: other (left side weakness with strength 1-2 /5 upper and lower , and decrese sensation left side ) - Level of Consciousness 1a. Level of Consciousness: alert/keenly responsive - LOC Questions 1b. LOC Questions: answers 1 question correctly - LOC Command 1c. LOC Commands: performs tasks correctly - Best Gaze 2. Best Gaze: normal - Visual 3. Visual: no visual loss - Facial Palsy 4. Facial Palsy: minor paralysis - Motor Arm 5a. Motor Arm Left: no gravity effort 5b. Motor Arm Right: no drift - Motor Leg 6a. Motor Leg Left: no gravity effort 6b. Motor Leg Right: no drift - Limb Ataxia 7. Limb Ataxia: absent - Sensory 8. Sensory: mild/moderate sensory loss - Best Language 9. Best Language: no aphasia - Dysarthria 10. Dysarthria: normal - Extinction and Inattention 11. Extinction/Inattention: no abnormality - Scoring Total Score: 9 Stroke Severity: Moderate Stroke Results - Laboratory Findings CBC and BMP: 04/28/21 18:53 04/28/21 18:53 Abnormal Lab Findings: Abnormal Labs 04/28/21 04/28/21 18:53 18:53 WBC 12.6 H RBC 5.20 H Hgb 15.6 H Hct 46.6 H Lymph % (Auto) 12.0 L Emmet % (Auto) 7.4 H Emmet # (Auto) 0.9 H Seg Neutrophils % 79.0 H Seg Neutrophils # 10.0 H Glucose 106 H Assessment and Plan Assessment and Plan VTE prophylaxis?: Mechanical Plan of care discussed with patient/family: Yes - Patient Problems # Left-sided weakness - onset of symptoms is unclear -NIH#9 currently -CT brain and CTA brain and neck are unrevealing -MRI is pending -Echo is pending -Admit the patient to the medical floor. - Aspirin 325 mg p.o. daily and or rectally - Lipitor 80 mg p.o. daily. - N.p.o. - PT OT any speech evaluation. # slurred speech no aphasia - N.p.o. - MRI of the brain without contrast. - PT OT any speech evaluation. - Echocardiogram. # History of CHF (congestive heart failure) -Stable. -We'll continue the home medication. -Echocardiogram # History of coronary artery disease - Aspirin 325 mg p.o. daily. - Lipitor 80 mg p.o. daily. -Echocardiogram. -LDL is pending # S/P CEA right side -On ASA 325 mg daily -CTA brain and neck are unremarkable # DVT prophylaxis -SCD for DVT prophylaxis. -Pepcid 20 mg IV twice daily for GI prophylaxis. - Patient is a full code
--- NOTE | 2021-04-29 10:12 | Magnetic Resonance Report ---
MRA HEAD 04/29/2021 INDICATION / CLINICAL INFORMATION: stroke, LT SIDED WEAKNESS. TECHNIQUE: Routine MRA of the head is performed. 3-D/MIP reformats postprocessed. COMPARISON: CT angiogram brain 04/28/2021 FINDINGS: MRA HEAD: Intracranial internal carotid arteries: No significant abnormality. Anterior cerebral arteries: No significant abnormality. Middle cerebral arteries: No significant abnormality. Intracranial vertebral arteries: No significant abnormality. Basilar artery: No significant abnormality. Posterior cerebral arteries: No significant abnormality. IMPRESSION: No significant abnormality. No change when compared to CT angiogram from 04/28/2021 Signer Name: Errol Castaneda MD Signed: 04/29/2021 10:08 AM Workstation Name: [id number]
--- NOTE | 2021-04-29 10:39 | Electrocardiograph Report ---
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
--- NOTE | 2021-04-29 10:41 | Magnetic Resonance Report ---
MRI BRAIN WITHOUT CONTRAST INDICATION / CLINICAL INFORMATION: stroke, LT SIDED WEAKNESS. TECHNIQUE: Multisequence, multiplanar images were obtained. COMPARISON: CT head performed yesterday FINDINGS: CEREBRAL and CEREBELLAR HEMISPHERES: No evidence of mass or mass effect. No midline shift. No acute hemorrhage. No diffusion restriction to suggest acute infarct. No extra-axial fluid collection. M oderate T2 signal abnormalities in the periventricular and and subcortical white matter are again not ed and most consistent with chronic microvascular ischemic disease. No chronic infarct is identified. VENTRICLES: Normal in size and configuration for age. VISUALIZED ORBITS: No significant abnormality. VISUALIZED PARANASAL SINUSES: Minimal mucosal thickening is noted throughout all paranasal sinuses. N o fluid level or opacification. ADDITIONAL FINDINGS: None. IMPRESSION: No evidence for acute ischemia, hemorrhage or mass. Moderate nonspecific chronic white matter changes consistent with chronic microvascular ischemic disease. Signer Name: Isidro Burris Jr, MD Signed: 04/29/2021 10:36 AM Workstation Name: [id number]
--- NOTE | 2021-04-29 12:59 | Event Note ---
Date: 04/29/21 Patient 55 yo, under law enforcement, presented with left sided weakness, slurred speech. I have seen and examined him. MRI unremarkable. EKG sinus love, incomplete LBBB. I spoke to Dr. Saunders his Physician. He states patient is on Metoprolol.
[2021-04-29 13:36] LABS: Bilirubin,Urine NEG (Negative); Blood,Urine NEG (Negative); Color,Urine Yellow (Yellow); Mucus,Urine 1+ /HPF; Protein,Urine <15 mg/dL mg/dL (Negative); Urobilinogen,Urine < 2.0 mg/dL (<2.0)
[2021-04-29] MEDS: FAMOTIDINE 20 MG/2 ML INJ IV SCH ×2 (13:39→23:06)
[2021-04-29] MEDS: ASPIRIN 325 MG TAB PO SCH (13:39)
[2021-04-29] MEDS: SODIUM CHLORIDE 0.9% 1000 ML 1,000 ML IV SCH ×2 (13:44→23:09)
[2021-04-29] MEDS: IPRATROPIUM/ALBUTEROL SULFATE 3 ML AMPUL.NEB IH SCH ×2 (15:04→20:53)
--- NOTE | 2021-04-29 15:47 | Consultation ---
History of Present Illness Consult date: 04/29/21 Requesting physician: MEE CLINE Consult reason: bradycardia History of present illness: Patient is 56 year old male with a pmhx of HFrEF , AAA, CAD s/p CABG x3 and h/o CVA who was brought to the ED from residential with new left sided weakness and slurred speech. Per documentation the patient had blood glucose of 94 and BP 85/64. At the time of the interview patient is lethargic and slow to answer questions. 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 On telemetry the patient has been bradycardic in the 40s with PACs. Cardiology was consulted for bradycardia and a LBBB. Echo 04/29/2021- EF 45 to 50%, left ventricle moderately dilated mild diastolic dysfunction is present no pericardial effusion, right ventricle is normal in size right ventricle is hypokinetic left and right atrium are normal in size Past History Past Medical History: CAD, heart failure, other (AAA) Past Surgical History: CABG, Other (right CEA 2019) Social history: no significant social history Family history: no significant family history Medications and Allergies Allergies Allergy/AdvReac Type Severity Reaction Status Date / Time atorvastatin [From Lipitor] Allergy Mild Unknown Verified 04/28/21 19:52 Home Medications Medication Instructions Recorded Confirmed Last Taken Type Aspirin 325 mg PO QDAY #30 tablet 04/28/21 Unknown Rx Active Meds: Active Medications Acetaminophen (Acetaminophen 325 Mg Tab) 650 mg PO Q4H PRN PRN Reason: Pain MILD(1-3)/Fever >100.5/ANGEL Albuterol (Albuterol 2.5 Mg/3 Ml Nebu) 2.5 mg IH Q4HRT PRN PRN Reason: Shortness Of Breath Albuterol/Ipratropium (Ipratropium/Albuterol Sulfate 3 Ml Ampul.Neb) 1 ampul IH Q6HRT [facility] Last Admin: 04/29/21 15:04 Dose: Not Given Documented by: Aspirin (Aspirin 325 Mg Tab) 325 mg PO QDAY [facility] Last Admin: 04/29/21 13:39 Dose: 325 mg Documented by: Famotidine (Famotidine 20 Mg/2 Ml Inj) 20 mg IV BID [facility] Last Admin: 04/29/21 13:39 Dose: 20 mg Documented by: Hydromorphone HCl (Hydromorphone 1 Mg/1 Ml Inj) 0.5 mg IV Q3H PRN PRN Reason: Pain , Severe (7-10) Sodium Chloride (Nacl 0.9% 1000 Ml) 1,000 mls @ 100 mls/hr IV DIRECT [facility] Last Admin: 04/29/21 13:44 Dose: 100 mls/hr Documented by: Labetalol HCl (Labetalol 20 Mg/4 Ml Inj) 10 mg IV Q5MIN PRN PRN Reason: to maintain SBP < 180 Ondansetron HCl (Ondansetron 4 Mg/2 Ml Inj) 4 mg IV Q8H PRN PRN Reason: Nausea And Vomiting Oxycodone/Acetaminophen (Oxycodone /Acetaminophen 5-325mg Tab) 1 tab PO Q6H PRN PRN Reason: Pain, Moderate (4-6) Sodium Chloride (Sodium Chloride 0.9% 10 Ml Flush Syringe) 10 ml IV BID [facility] Last Admin: 04/29/21 13:39 Dose: 10 ml Documented by: Sodium Chloride (Sodium Chloride 0.9% 10 Ml Flush Syringe) 10 ml IV PRN PRN PRN Reason: LINE FLUSH Review of Systems All systems: negative Constitutional: no weight loss, no weight gain, no fever Ears, nose, mouth and throat: no ear pain, no ear discharge, no tinnitis, no decreased hearing Cardiovascular: no chest pain, no orthopnea, no palpitations, no syncope Respiratory: no cough, no cough with sputum, no excessive sputum, no hemoptysis, no shortness of breath Gastrointestinal: no abdominal pain, no nausea, no vomiting, no diarrhea Musculoskeletal: muscle weakness, no neck stiffness, no neck pain, no shooting arm pain Integumentary: no rash, no pruritis, no redness Neurological: paralysis, weakness Psychiatric: no anxiety, no memory loss Endocrine: no cold intolerance, no heat intolerance Physical Examination Vital Signs Pulse Resp Pulse Ox 59 L 16 100 04/28/21 19:02 04/28/21 19:02 04/28/21 19:02 Cardiac: Positive: Regular Rhythm Lungs: Positive: Normal Breath Sounds Neuro: Positive: Weakness Abdomen: Positive: Active Bowel Sounds Skin: Negative: Rash, Suspicious Lesions Extremities: Present: upper extr. pulses, lower extr. pulses. Absent: edema Results 04/28/21 18:53 04/28/21 18:53 Cardiac Enzymes 04/28/21 Range/Units 18:53 AST 20 (5-40) units/L CK-MB (CK-2) 1.6 (0.0-4.0) ng/mL Coagulation 04/28/21 Range/Units 18:53 PT 13.4 (12.2-14.9) Sec. INR 0.97 (0.87-1.13) APTT 31.8 (24.2-36.6) Sec. CBC 04/28/21 Range/Units 18:53 WBC 12.6 H (4.5-11.0) K/mm3 RBC 5.20 H (3.65-5.03) M/mm3 Hgb 15.6 H (11.8-15.2) gm/dl Hct 46.6 H (35.5-45.6) % Plt Count 243 (140-440) K/mm3 Lymph # (Auto) 1.5 (1.2-5.4) K/mm3 Riley # (Auto) 0.9 H (0.0-0.8) K/mm3 Eos # (Auto) 0.1 (0.0-0.4) K/mm3 Baso # (Auto) 0.1 (0.0-0.1) K/mm3 Comprehensive Metabolic Panel 04/28/21 Range/Units 18:53 Sodium 137 (137-145) mmol/L Potassium 3.9 (3.6-5.0) mmol/L Chloride 100.2 (98-107) mmol/L Carbon Dioxide 28 (22-30) mmol/L BUN 17 (9-20) mg/dL Creatinine 1.2 (0.8-1.3) mg/dL Glucose 106 H (75-100) mg/dL Calcium 8.9 (8.4-10.2) mg/dL AST 20 (5-40) units/L ALT 25 (7-56) units/L Alkaline Phosphatase 65 (35-129) units/L Total Protein 6.7 (6.3-8.2) g/dL Albumin 4.1 (3.9-5) g/dL - Imaging and Cardiology Echo: report reviewed EKG: report reviewed, image reviewed EKG interpretations - Telemetry EKG Rhythm: Sinus Bradycardia - EKG Sinus rhythms and dysrhythmias: sinus bradycardia Assessment and Plan Left Sided weakness * Neuro following * CT shows no acute abnormalities * MRI pending Bradycardia * Patient is bradycardiac on telemetry with rate in the 40s * Patient is followed by Dr. Tucker, Cardiology [facility] CAD s/p CABGx3 * NPI Stress 04/24/2021- negative for reversible ischemia. EF 30-35% * Troponins negative x2, EKG showed no signs of acute ischemic change. AMI ruled out HFrEF in setting of cardiomyopathy * GDMT- asa, BB, statin, CARMINE/ARB * Hold BB due to bradycardia, * Echo 04/29/2021- EF 45 to 50%, left ventricle moderately dilated mild diastolic dysfunction is present no pericardial effusion, right ventricle is normal in size right ventricle is hypokinetic left and right atrium are normal in size * Lipid panel pending Patient seen in conjunction with Dr. Irizarry who agrees with this plan of care. Will continue to follow - Patient Problems (1) Aphasia Current Visit: Yes Status: Acute (2) DVT prophylaxis Current Visit: Yes Status: Acute (3) History of CHF (congestive heart failure) Current Visit: Yes Status: Acute (4) History of coronary artery disease Current Visit: Yes Status: Acute (5) Left-sided weakness Current Visit: Yes Status: Acute
[2021-04-30] MEDS: IPRATROPIUM/ALBUTEROL SULFATE 3 ML AMPUL.NEB IH SCH ×4 (01:59→20:46)
[2021-04-30 05:57] LABS: Basophils # (Auto) 0.1 K/mm3 (0.0-0.1); Basophils % (Auto) 0.5 % (0.0-1.8); Eosinophils # (Auto) 0.2 K/mm3 (0.0-0.4); Hematocrit 39.3 % (35.5-45.6); Hemoglobin 13.1 gm/dl (11.8-15.2); Lymphocytes # (Auto) 2.3 K/mm3 (1.2-5.4); Lymphocytes % (Auto) 19.2 % (13.4-35.0); Mean Corpuscular HGB Conc 33 % (32-34); Mean Corpuscular Volume 89 fl (84-94); Monocytes # (Auto) 0.9 K/mm3 (0.0-0.8); Monocytes % (Auto) 7.8 % (0.0-7.3); Platelet Count 206 K/mm3 (140-440); Red Blood Count 4.42 M/mm3 (3.65-5.03); Red Cell Distribution Width 14.8 % (13.2-15.2)
[2021-04-30 06:24] LABS: BUN/Creatinine Ratio 21; Blood Urea Nitrogen 19 mg/dL (9-20); Calcium 8.6 mg/dL (8.4-10.2); Chol/HDL Ratio 4.75 %; HDL Cholesterol 33 mg/dL (40-59); Hemolysis Index 4; LDL Cholesterol,Direct 112 mg/dL (50-130)
--- NOTE | 2021-04-30 09:09 | Electrocardiograph Report ---
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1965 Requested By: FABIANA HUBER Order Number: [id number] Reading MD: Denny Irizarry Measurements Intervals [place] Rate: 74 P: 47 WV: 155 QRS: 8 QRSD: 117 T: 178 QT: 413 QTc: 458 Interpretive Statements Sinus rhythm Ventricular premature complex Probable left atrial enlargement LVH with secondary repolarization abnormality Anterior infarct, old Compared to ECG 04/28/2021 19:10:15 Ventricular premature complex(es) now present Left ventricular hypertrophy now present Early repolarization now present Myocardial infarct finding now present Sinus bradycardia no longer present Left bundle-branch block no longer present Electronically Signed On 04-30-2021 9:09:02 EDT by Denny Irizarry
[2021-04-30] MEDS: ASPIRIN 325 MG TAB PO SCH (09:14)
[2021-04-30] MEDS: FAMOTIDINE 20 MG/2 ML INJ IV SCH ×2 (09:14→22:50)
[2021-04-30] MEDS: SODIUM CHLORIDE 0.9% 1000 ML 1,000 ML IV SCH ×2 (09:14→18:31)
--- NOTE | 2021-04-30 10:35 | Progress Note ---
Assessment and Plan Assessment and Plan VTE prophylaxis?: Mechanical Plan of care discussed with patient/family: Yes - Patient Problems # Left-sided weakness - onset of symptoms is unclear -NIH#9 initially and currently is #6 no effort to move left side , no facial droop , no clear dysarthia nor aphasia is noted -CT brain and CTA brain and neck are unrevealing -MRI is unremarkable no acute event is noted -Echo is with EF#45-50% -Admit the patient to the medical floor. - Aspirin 325 mg p.o. daily -LDL#112 - Lipitor On Hold due to allergy - N.p.o. - PT OT any speech evaluation. # slurred speech no aphasia - N.p.o. - MRI of the brain without contrast.is unremarkable - PT OT any speech evaluation. - Echocardiogram.as above ... # History of CHF (congestive heart failure) -Stable. -We'll continue the home medication. -Echocardiogram # Bradycardia and hypotension -evaluated by cardiology # History of coronary artery disease - Aspirin 325 mg p.o. daily. - Lipitor On hold due to allergy -Echocardiogram is noted -LDL #112 # S/P CEA right side -On ASA 325 mg daily -CTA brain and neck are unremarkable # DVT prophylaxis -SCD for DVT prophylaxis. -Pepcid 20 mg IV twice daily for GI prophylaxis. - Patient is a full code #AAA -follow up with vascualr surgery PLAN 1- As above 2- findings on MRI is explained to pt. 3- Advance PO , speech therapy 4- pt therapy 5- Managment of Hyper lipidemia 6- cardiology follow up will sign off Subjective Date of service: 04/30/21 Principal diagnosis: new onset left side weakness Interval history: according to pt. he stil unable to move left side and continues to mumble when asked question , he is with NO aphasia , and no clear left facial droop , MRI brain showed no acute event According to him he had CVA 2020 ???and he is here now due to his blood pressure is high. Objective - Vital Sign Vital Signs - 12hr 04/30/21 04/30/21 04/30/21 00:46 02:00 04:21 Temperature 98.6 F 98.2 F Pulse Rate 50 L 56 L Pulse Rate [ 78 Bilateral] Respiratory 20 18 Rate Respiratory 18 Rate [Bilateral ] Blood Pressure 123/58 99/58 O2 Sat by Pulse 99 91 Oximetry 04/30/21 07:44 Temperature 98.3 F Pulse Rate 44 L Pulse Rate [ Bilateral] Respiratory 18 Rate Respiratory Rate [Bilateral ] Blood Pressure 134/48 O2 Sat by Pulse 88 Oximetry - General Apperance Constitutional: comfortable - EENT EENT: PERRL, mucous membranes moist - Respiratory Respiratory: chest non-tender, lungs clear, rhonchi - Cardiovascular Cardiovascular: regular rate, normal S1, normal S2 Extremities: no peripheral edema bilat, no clubbing, cyanosis - Gastrointestinal Gastrointestinal: normoactive bowel sounds - Integumentary Integumentary: normal - Neurologic Cranial nerve examination: PERRL, EOMI, intact Speech examination: other (he mumble when asked question but able to answear , no aphasia is noted no dysarthia is noted ) Detailed motor examination: other (diffuse weakness left upper and lower with no effort is noted to move ,planter is down going , no sensory deficit , gait is unable to do.) - Laboratory Findings CBC and BMP: 04/30/21 04:46 04/30/21 04:46 Abnormal Lab Findings: Abnormal Labs 04/28/21 04/28/21 04/29/21 18:53 18:53 12:00 WBC 12.6 H RBC 5.20 H Hgb 15.6 H Hct 46.6 H Lymph % (Auto) 12.0 L Hanson % (Auto) 7.4 H Hanson # (Auto) 0.9 H Seg Neutrophils % 79.0 H Seg Neutrophils # 10.0 H Potassium Glucose 106 H HDL Cholesterol Ur Specific [place] 1.047 H 04/30/21 04/30/21 04:46 04:46 WBC 11.7 H RBC Hgb Hct Lymph % (Auto) [place] % (Auto) 7.8 H Hanson # (Auto) 0.9 H Seg Neutrophils % 70.5 H Seg Neutrophils # 8.3 H Potassium 3.5 L Glucose 73 L HDL Cholesterol 33 L Ur Specific [place]
--- NOTE | 2021-04-30 14:10 | Progress Note ---
Assessment and Plan Left Sided weakness * Neuro following * CT shows no acute abnormalities * MRI shows no acute abnormalities Bradycardia * Patient is bradycardiac on telemetry with rate in the 50s * Patient is followed by Dr. Tucker, Cardiology [facility] CAD s/p CABGx3 * NPI Stress 04/24/2021- negative for reversible ischemia. EF 30-35% * Troponins negative x2, EKG showed no signs of acute ischemic change. AMI ruled out HFrEF in setting of cardiomyopathy * GDMT- asa, BB, CARMINE/ARB. Statin on hold per neuro recs for allergy. * Hold BB due to bradycardia, * Echo 04/29/2021- EF 45 to 50%, left ventricle moderately dilated mild diastolic dysfunction is present no pericardial effusion, right ventricle is normal in size right ventricle is hypokinetic left and right atrium are normal in size Patient cardiac status is stable. Patient seen in conjunction with Dr. Irizarry who agrees with this plan of care. Will see as needed - Patient Problems (1) Aphasia Current Visit: Yes Status: Acute (2) DVT prophylaxis Current Visit: Yes Status: Acute (3) History of CHF (congestive heart failure) Current Visit: Yes Status: Acute (4) History of coronary artery disease Current Visit: Yes Status: Acute (5) Left-sided weakness Current Visit: Yes Status: Acute Subjective Date of service: 04/30/21 Principal diagnosis: new onset left side weakness Interval history: Patient lying in bed. No chest pain or difficulty breathing. Reports left sided weakness still Patient sinus love 50s on with no events on monitor Objective Vital Signs Temp Pulse Pulse Pulse Resp Resp BP 04/30/21 07:44 98.3 F 44 L 18 134/48 04/30/21 04:21 98.2 F 56 L 18 99/58 04/30/21 02:00 78 18 04/30/21 00:46 98.6 F 50 L 20 123/58 04/29/21 22:00 04/29/21 20:55 77 18 04/29/21 20:37 98.6 F 49 L 20 117/62 04/29/21 20:18 58 L 18 04/29/21 20:10 58 L 04/29/21 17:45 97.9 F 40 L 18 109/54 04/29/21 15:58 98.2 F 04/29/21 15:37 50 L 20 92/48 04/29/21 14:25 Pulse Ox 04/30/21 07:44 88 04/30/21 04:21 91 04/30/21 02:00 04/30/21 00:46 99 04/29/21 22:00 97 04/29/21 20:55 04/29/21 20:37 96 04/29/21 20:18 95 04/29/21 20:10 04/29/21 17:45 95 04/29/21 15:58 04/29/21 15:37 96 04/29/21 14:25 98 - Physical Examination General: No Apparent Distress Neck: Positive: trachea midline Cardiac: Positive: Regular Rhythm, Bradycardia Lungs: Positive: Normal Breath Sounds Neuro: Positive: Weakness Abdomen: Positive: Active Bowel Sounds Skin: Negative: Rash, Suspicious Lesions Extremities: Present: upper extr. pulses, lower extr. pulses. Absent: edema - Labs and Meds Lipids 04/30/21 Range/Units 04:46 Triglycerides 122 (2-149) mg/dL Cholesterol 157 (50-199) mg/dL HDL Cholesterol 33 L (40-59) mg/dL Cholesterol/HDL Ratio 4.75 % CBC 04/30/21 Range/Units 04:46 WBC 11.7 H (4.5-11.0) K/mm3 RBC 4.42 (3.65-5.03) M/mm3 Hgb 13.1 (11.8-15.2) gm/dl Hct 39.3 D (35.5-45.6) % Plt Count 206 (140-440) K/mm3 Lymph # (Auto) 2.3 (1.2-5.4) K/mm3 Rains # (Auto) 0.9 H (0.0-0.8) K/mm3 Eos # (Auto) 0.2 (0.0-0.4) K/mm3 Baso # (Auto) 0.1 (0.0-0.1) K/mm3 Comprehensive Metabolic Panel 04/30/21 Range/Units 04:46 Sodium 142 (137-145) mmol/L Potassium 3.5 L (3.6-5.0) mmol/L Chloride 105.0 (98-107) mmol/L Carbon Dioxide 25 (22-30) mmol/L BUN 19 (9-20) mg/dL Creatinine 0.9 (0.8-1.3) mg/dL Glucose 73 L (75-100) mg/dL Calcium 8.6 (8.4-10.2) mg/dL - Imaging and Cardiology EKG: report reviewed, image reviewed Echo: report reviewed - Telemetry EKG Rhythm: Sinus Bradycardia - EKG Sinus rhythms and dysrhythmias: sinus bradycardia
[2021-05-01] MEDS: FAMOTIDINE 20 MG/2 ML INJ IV SCH ×2 (09:20→21:42)
[2021-05-01] MEDS: ASPIRIN 325 MG TAB PO SCH (09:20)
[2021-05-01] MEDS: SODIUM CHLORIDE 0.9% 1000 ML 1,000 ML IV SCH ×2 (09:21→19:44)
--- NOTE | 2021-05-01 09:25 | Progress Note ---
Assessment and Plan Assessment and Plan VTE prophylaxis?: Mechanical Plan of care discussed with patient/family: Yes - Patient Problems (1) Left-sided weakness Current Visit: Yes Status: Acute Plan to address problem: Admit the patient to the medical floor. Aspirin 325 mg p.o. daily. Lipitor 80 mg p.o. daily. N.p.o. MRI of the brain with and without contrast. MRI of the brain and neck with and without contrast. PT OT any speech evaluation. Echocardiogram. Will consult neurology for evaluation (2) Aphasia Current Visit: Yes Status: Acute Plan to address problem: Aspirin 325 mg p.o. daily. Lipitor 80 mg p.o. daily. N.p.o. MRI of the brain with and without contrast. MRI of the brain and neck with and without contrast. PT OT any speech evaluation. Echocardiogram. Will consult neurology for evaluation (3) History of CHF (congestive heart failure) Current Visit: Yes Status: Acute Plan to address problem: Stable. We'll continue the home medication. Echocardiogram (4) History of coronary artery disease Current Visit: Yes Status: Acute Plan to address problem: Aspirin 325 mg p.o. daily. Lipitor 80 mg p.o. daily. Echocardiogram. (5) DVT prophylaxis Current Visit: Yes Status: Acute Plan to address problem: SCD for DVT prophylaxis. Pepcid 20 mg IV twice daily for GI prophylaxis. Patient is a full code Subjective Date of service: 04/30/21 Principal diagnosis: new onset left side weakness Interval history: 56-year-old gentleman with a history of CHF , AAA [facility] with new left-sided weakness and slurred speech. the patient had an Accu-Chek of 94, and a blood pressure of 85/64. As per EMS, neurologic symptoms include facial droop on the left side, and left arm weakness In the emergency room, the patient is awake, follows commands, but is nonverbal. The patient cannot tell me his last known well time. It is not able to conclusively established this patient's last known well time. CT scan of the head shows no acute intracranial abnormality. Patient is seen and evaluated by telemetry neurology Objective - Constitutional Vitals: Vital Signs - 12hr 04/30/21 05/01/21 05/01/21 22:00 04:00 07:44 Temperature 98.9 F Pulse Rate 67 44 L Pulse Rate [ 58 L From Monitor] Respiratory 18 18 Rate Blood Pressure 130/52 O2 Sat by Pulse 95 95 Oximetry - Labs CBC & Chem 7: 04/30/21 04:46 04/30/21 04:46 HEART Score - HEART Score Troponin: Troponin T < 0.010 ng/mL (0.00-0.029) 04/29/21 02:43
[2021-05-01] MEDS: IPRATROPIUM/ALBUTEROL SULFATE 3 ML AMPUL.NEB IH SCH ×3 (09:45→21:05)
--- NOTE | 2021-05-01 12:28 | Progress Note ---
Assessment and Plan Assessment and Plan VTE prophylaxis?: Mechanical Plan of care discussed with patient/family: Yes - Patient Problems # Left-sided weakness so far no improvment - onset of symptoms is unclear -NIH#9 initially and currently is #6 no effort to move left side , no facial droop , no clear dysarthia nor aphasia is noted -CT brain and CTA brain and neck are unrevealing -MRI is unremarkable no acute event is noted -Echo is with EF#45-50% -Admit the patient to the medical floor. - Aspirin 325 mg p.o. daily -LDL#112 - Lipitor On Hold due to allergy ?? - N.p.o.awaiting evaluation of swallow - PT OT any speech evaluation. -Consider repeat MRI brain by judith if not better !!!! # slurred speech no aphasia - N.p.o. - MRI of the brain without contrast.is unremarkable - PT OT any speech evaluation. - Echocardiogram.as above ... # History of CHF (congestive heart failure) -Stable. -We'll continue the home medication. # Bradycardia and hypotension -evaluated by cardiology # History of coronary artery disease - Aspirin 325 mg p.o. daily. - Lipitor On hold due to allergy -Echocardiogram is noted -LDL #112 # S/P CEA right side -On ASA 325 mg daily -CTA brain and neck are unremarkable # DVT prophylaxis -SCD for DVT prophylaxis. -Pepcid 20 mg IV twice daily for GI prophylaxis. - Patient is a full code #AAA -follow up with vascualr surgery PLAN 1- As above 2- findings on MRI is explained to pt consider repeat if no better R/o pontine infarct.. 3- Advance PO , speech therapy 4- pt therapy 5- Managment of Hyper lipidemia 6- cardiology follow up will follow Subjective Date of service: 05/01/21 Principal diagnosis: new onset left side weakness Interval history: according to pt. he stil unable to move left side and continues to mumble when asked question , he is with NO aphasia , and no clear left facial droop , MRI brain showed no acute event According to him he had CVA 2019 ???and he is here now due to his blood pressure is high. According to him left side weakness is worse compared to 2019 he was able to walk until early this week !! his speech improved ? swallow evaluation Objective - Vital Sign Vital Signs - 12hr 05/01/21 05/01/21 05/01/21 04:00 07:44 10:00 Temperature 98.9 F Pulse Rate 67 44 L Respiratory 18 18 Rate Blood Pressure 130/52 O2 Sat by Pulse 95 96 Oximetry - General Apperance Constitutional: comfortable - EENT EENT: PERRL, mucous membranes moist - Respiratory Respiratory: lungs clear, normal breath sounds, rhonchi - Cardiovascular Cardiovascular: regular rate, normal S1, normal S2 Extremities: no peripheral edema bilat, no clubbing, cyanosis - Gastrointestinal Gastrointestinal: normoactive bowel sounds - Integumentary Integumentary: normal - Neurologic Cranial nerve examination: PERRL, EOMI, intact Detailed motor examination: other (left hemiplegia upper 1-2/5 lower 1/5 ) - Laboratory Findings CBC and BMP: 04/30/21 04:46 04/30/21 04:46 Abnormal Lab Findings: Abnormal Labs 04/28/21 04/28/21 04/29/21 18:53 18:53 12:00 WBC 12.6 H RBC 5.20 H Hgb 15.6 H Hct 46.6 H Lymph % (Auto) 12.0 L Charles % (Auto) 7.4 H Charles # (Auto) 0.9 H Seg Neutrophils % 79.0 H Seg Neutrophils # 10.0 H Potassium Glucose 106 H HDL Cholesterol Ur Specific [place] 1.047 H 04/30/21 04/30/21 04:46 04:46 WBC 11.7 H RBC Hgb Hct Lymph % (Auto) Charles % (Auto) 7.8 H Charles # (Auto) 0.9 H Seg Neutrophils % 70.5 H Seg Neutrophils # 8.3 H Potassium 3.5 L Glucose 73 L HDL Cholesterol 33 L Ur Specific [place]
[2021-05-01 20:53] VITALS: BP 140/61
== END 2021-05-02 00:30 | disposition left against medical advice (07) | DRG 308 ==
LOC: ED 18:25 → EEVIPCON 18:25 → 4A 04-29 04:17
PROVIDERS: ADMIT Hospitalist; ATTEND Internal Medicine
DX: R00.1 Bradycardia, unspecified (principal); I50.31 Acute diastolic (congestive) heart failure; R47.01 Aphasia; I42.9 Cardiomyopathy, unspecified; I25.10 Atherosclerotic heart disease of native coronary artery without angina pectoris; R29.720 NIHSS score 20; I44.7 Left bundle-branch block, unspecified; I95.9 Hypotension, unspecified; I71.4 Abdominal aortic aneurysm, without rupture; Z95.1 Presence of aortocoronary bypass graft; Z86.73 Personal history of transient ischemic attack (TIA), and cerebral infarction without residual deficits; Z79.82 Long term (current) use of aspirin; Z79.899 Other long term (current) drug therapy
CPT/HCPCS: 36415; 70450; 70496; 70498; 70544; 70551; 71045; 80048; 80053; 80061; 81001; 82140; 82550; 82553; 82962; 83735; 84443; 84484; 85025; 85610; 85670; 85730; 87040; 87641; 93005; 93306; 94640; 99292; G0378; J7030; J7050; Q9967